=== PATIENT | male | born 1950 | race Caucasian/White ===

== ENCOUNTER 2018-12-28 08:33 | Observation (INO) | payer MEDICARE ==
--- NOTE | 2018-12-28 09:19 | RAD ---
CHEST 1 VIEW: HISTORY: Chest pain, dizziness. COMPARISON: Radiograph 2016. FINDINGS: Heart size upper limits of normal. No confluent airspace consolidation, pneumothorax, or effusion. No acute osseous abnormality. Multiple midline sternotomy wires. Moderate degenerative changes of both shoulder joints. IMPRESSION: Mild cardiomegaly. POS: CET
[2018-12-28 09:37] LABS: #Eosinphils 0.1 thou/uL (0.0-0.7); #Lymphocytes 1.6 thou/uL (1.20-3.40); #Monocytes 0.4 thou/uL (0.11-0.59); #Neutrophils 3.7 thou/uL (1.40-6.50); %Basophils 0.4 % (0.0-1.0); %Eosinophils 1.6 % (0.0-10.0); %Lymphocytes 27.3 % (21.0-51.0); %Monocytes 6.6 % (0.0-10.0); %Neutrophils 64.1 % (42.0-75.0); Hemoglobin 15.3 g/dL (14.0-18.0); Mean Corpuscular HGB CONC 33.4 g/dL (32.0-36.0); Mean Platelet Volume 9.5 fL (7.4-10.4); Platelet Count 168 thou/uL (130-400); RBC Distribution Width 12.3 % (11.5-14.5); Red Blood Cell (RBC) Count 4.94 mill/uL (4.70-6.10); White Blood Cell (WBC) Count 5.8 thou/uL (4.8-10.8)
[2018-12-28 09:56] LABS: ALT (SGPT) 18 U/L (8-55); AST (SGOT) 21 U/L (5-34); Albumin 4.1 g/dL (3.4-4.8); Alkaline Phosphatase 75 U/L (40-150); Anion Gap 12 mmol/L (10-20); BUN (Urea Nitrogen) 27 mg/dL (8.4-25.7); Bilirubin, Total 0.8 mg/dL (0.2-1.2); CK (CPK) 113 U/L (30-200); Calc. Creatinine Clearance 0 mL/min (70-130); Calcium 9.4 mg/dL (7.8-10.44); Carbon Dioxide 22 mmol/L (23-31); Chloride 108 mmol/L (98-107); Estimated GFR-MDRD 53; Globulin 2.8 g/dL (2.4-3.5); Glucose 103 mg/dL (80-115); Magnesium 2.2 mg/dL (1.6-2.6); Potassium 4.5 mmol/L (3.5-5.1); Protein, Total 6.9 g/dL (5.8-8.1); Sodium 137 mmol/L (136-145)
[2018-12-28] MEDS ORDERED: Meclizine HCl 25 MG TAB ONE ×2 (11:40)
--- NOTE | 2018-12-28 12:20 | CT ---
CT OF THE BRAIN WITHOUT CONTRAST: Date: 12/28/18 INDICATION: History of dizziness. COMPARISON: None. FINDINGS: No acute infarct, hemorrhage, or hydrocephalus is present. Septum pellucidum and third ventricle are midline. The skull and extracranial soft tissues are within normal limits. IMPRESSION: No acute intracranial abnormality demonstrated. POS: MARYJANE
[2018-12-28] MEDS ORDERED: Acetaminophen 325 MG TAB PO PRN (14:24)
--- NOTE | 2018-12-28 15:03 | PDOC.EVN ---
Event Note - Event Note Event Note: Called Dr. Sharp office and reviewed meds. He is on: Amlodipine/HCTZ Allopurinol ASA Flomax. He is not any chronotropes. He does have a history of afib/flutter and opts not to take anticoagulation. His HR has been in the 50's at their office in the past.
[2018-12-28 15:41] LABS: Troponin I Less than 0.010 ng/mL (< 0.028)
--- NOTE | 2018-12-28 16:03 | HP ---
CHIEF COMPLAINT: "Not feeling right." HISTORY OF PRESENT ILLNESS: This patient is a 68-year-old male with a past medical history notable for history of aortic valve stenosis with a bioprosthetic aortic valve replacement in February of 2015 with open heart procedure. At that time, the patient also had a left atrial appendage "resection." He also has a history of a saddle embolus following treatment for kidney stone. The patient reports that 2 days ago, when he was out setting fence posts, did not feel like he was working overly hard. Yesterday, he stated he felt well, but sometime after mu-ism, he started to feel like he had a "split image," however, he clarifies that he was not having double vision. He says clearly his head was not spinning and does not feel like the room was spinning, but he does say that he feels like "the 2 sides of his brain are not working together." He feels like he is cognitively intact and does not specifically feel off balance, but feels like this could be making his balance worse. He feels clearly that there is something wrong with the way his brain is perceiving the world. He also has a little bit of soreness in the neck, but no other headache or head pain. He has no associated fevers or chills. REVIEW OF SYSTEMS: All systems reviewed and all pertinent positives and negatives noted in the history of present illness. PAST MEDICAL HISTORY: Notable for hypertension, gout, saddle pulmonary embolus following renal stone lithotripsy. He does have the history of kidney stones; aortic valve stenosis; BPH; and chronic kidney disease, stage 3. The patient reports that he is unaware of ever having had atrial fibrillation or an ablation, although the record from his primary care doctor, Dr. Bay Busch from when the patient was admitted with a pulmonary embolus indicates that he did have AFib with ablation and left atrial appendage "resection." PAST SURGICAL HISTORY: Aortic valve replacement with a bioprosthetic valve in February of 2015, atrial fibrillation ablation. FAMILY HISTORY: Father had heart disease, but was a smoker. His mother at 89. SOCIAL HISTORY: Nonsmoker, nondrinker, nondrug user. He is . He is full code. His is his surrogate decision maker. ALLERGIES: PENICILLINS. CURRENT MEDICATIONS: The patient indicates he gave list, but is unaware of the specific names. Unable to track down his list at the moment. It appears as though he recalls taking aspirin 325 daily and allopurinol 100 mg. He also states that he was supposed to be taking a "heart medication" twice a day, but he is primarily taking it once a day. PHYSICAL EXAMINATION: VITAL SIGNS: Most recent vitals; blood pressure 147/105, although throughout his emergency room stay, his blood pressure has otherwise been completely normal; pulse 54, pulse did get down to 48 at one point; respirations 17; temperature is 97.9, and O2 saturations 96% on room air. GENERAL APPEARANCE: Age-appropriate male, in no distress. He is awake, alert, oriented, pleasant, and cooperative. HEENT: PERRL. No OP lesions. NECK: Supple and symmetric without lymphadenopathy, JVD, or carotid bruits. HEART: Regular rate and rhythm without murmurs, gallops, or rubs. LUNGS: Clear to auscultation bilaterally with good chest wall expansion and air exchange. ABDOMEN: Soft, nontender, and nondistended. Positive bowel sounds. No masses. No organomegaly. EXTREMITIES: Warm and dry with no cyanosis, clubbing, or edema. NEUROLOGICAL: The patient appears to be intact. He has normal cranial nerve function. Normal spontaneous movement, strength and sensation throughout. PSYCHIATRIC: The patient has normal affect and behavior. LABORATORY DATA: White count 5.8, hemoglobin 15.3, and platelets 168. Sodium 147, potassium 4.5, chloride 108, CO2 is 22, BUN is 27, creatinine is 1.34, glucose 103, and magnesium 2.2. AST 21, ALT is 18, and alkaline phosphatase 75. CK 113, troponin is less than 0.01. BNP 72. Albumin 4.1. IMAGING DATA: CT of the brain is negative. Chest x-ray is negative. EKG shows sinus bradycardia in the upper 50s with no ST-segment changes or evidence of ischemia. IMPRESSION AND PLAN: 1. Possible transient ischemic attack with balance disturbance. Difficult to define what he is describing as the patient has a very difficult time explaining it concerning for the possibility of balance disturbance, but also the possibility of symptomatic bradycardia. Also in the picture is the fact that he has a history of bioprosthetic aortic valve, pulmonary embolus, and atrial fibrillation. We will repeat a troponin now. We will get an MRI of the head, carotid Dopplers, and echocardiogram. We will keep him on telemetry. We will endeavor to find out what his medications. I am concerned he may be on a beta-jeny and may be having symptomatic bradycardia related to that. We will ask Physical Therapy to see him to get him up and around appropriately. 2. Chronic kidney disease, stage 3. The patient's current creatinine is consistent with where it has been since 2015. 3. Hypertension. We will resume his medications once they are fully elucidated. 4. History of pulmonary embolism. The patient was on anticoagulation for a period of time and is now off that per instructions of his primary physician. 5. History of BPH, stable. Job ID: [id number]
[2018-12-28 16:51] VITALS: BMI 30.9
--- NOTE | 2018-12-28 20:09 | MRI ---
NONCONTRAST MRI BRAIN: Date: 12-28-18 History: Vertigo. Patient has been off balance since one day ago. Comparison: CT head, 12-28-18. FINDINGS: A few scattered punctate areas of increased FLAIR and T2 weighted signal intensity are seen in the pe riventricular and subcortical white matter which are overall nonspecific but likely reflective of mil d chronic small vessel ischemic changes. There is no evidence of an acute infarction. Mild cerebral volume loss is present, not unexpected for the patient's age. The left vertebral flow void is dominant which is a normal variant. Appropriate flow voids are demons trated at the base of the brain. Patient's [place] lenses are not visualized. The paranasal sinuses and skull base have a normal MRI appearance. IMPRESSION: 1. No acute intracranial abnormality is demonstrated. 2. Mild chronic small vessel ischemic changes. POS: SONALI
--- NOTE | 2018-12-28 20:56 | ULT ---
BILATERAL CAROTID DUPLEX ULTRASOUND: History: TIA FINDINGS: Real-time color doppler evaluation of the right and left carotid systems show some minimal plaque for mation origin of both internal carotid arteries. On the right side peak systolic velocity of the common carotid are 65 cm/sec, internal carotid veloci ty 61 cm/sec, external carotid velocity 59 cm/sec. On the left side peak systolic velocity of the common carotid are 70 cm/sec, internal carotid velocit y 64 cm/sec, and external carotid velocity is 49 cm/sec. Vertebral flow is antegrade bilaterally. IMPRESSION: No evidence of hemodynamically significant stenosis of either internal carotid artery. POS: SONALI
[2018-12-29] MEDS ORDERED: Allopurinol 300 MG TAB PO SCH (09:00)
[2018-12-29] MEDS ORDERED: Amlodipine 5 MG TAB PO SCH (09:00)
[2018-12-29] MEDS ORDERED: Tamsulosin HCl 0.4 MG CAP PO SCH (09:00)
[2018-12-29] MEDS ORDERED: Aspirin 81 mg Enteric Coated Tablet PO SCH (09:00)
[2018-12-29 15:38] VITALS: BP 115/76; TEMP 98.2
--- NOTE | 2018-12-30 05:54 | DIS ---
DATE OF ADMISSION: 12/28/2018 DATE OF DISCHARGE: 12/29/2018 ALLERGIES: PENICILLINS. CHIEF COMPLAINTS: "Not feeling right." "The two sides of my brain are not working together." FINAL DIAGNOSES: 1. Possible transient ischemic attack versus transient vertigo, resolved, MRI is negative for cerebrovascular accident. 2. Severe aortic stenosis, status post bioprosthetic aortic valve and left atrial appendage ligation in 2014. 3. Sinus bradycardia. 4. Paroxysmal atrial fibrillation. 5. Hypertension. LAB RESULTS: White blood cell count 4.94, hemoglobin 15.3, hematocrit 45.9, MCV 93, platelet count 168. D-dimer 0.63. Sodium 137, potassium 4.5, chloride 108, carbon dioxide 22, BUN 27, creatinine 1.34. Liver function tests within normal limits. Troponin negative x2. BNP 72. Albumin 4.1. IMAGING RESULTS: Chest x-ray, mild cardiomegaly, no confluent airspace consolidation, pneumothorax, or effusions. No acute osseous abnormality. Multiple midline sternotomy wires. Brain CT, no acute intracranial abnormality demonstrated. Brain MRI, no acute intracranial abnormalities demonstrated, mild chronic small-vessel ischemic changes. Carotid Doppler, no evidence of hemodynamically significant stenosis of either internal carotid artery. CONSULTATIONS: None. VITAL SIGNS: Blood pressure 115/76, O2 saturation 95% on room air, pulse 61, temperature 98.2. HOSPITAL COURSE: The patient is a very pleasant 68-year-old male with past medical history significant for severe aortic stenosis, status post bioprosthetic aortic valve replacement and left atrial appendage ligation in 2014, history of paroxysmal atrial fibrillation, history of pulmonary embolism, and hypertension, who presented to the hospital via private vehicle with complaints of "not feeling right." The patient reports that approximately 2 days before his symptoms began, he had been out working on a fence post and doing quite a bit of heavy labor. The next day, he states he overall felt well, but sometime after faith, he started noticing that he did not feel quite right, and the way he describes it is that the right and left side of his brain were not talking to each other. He had no blurred vision, he had no dizziness per patient, although his states that he mentioned that once, he had no sensation of the room spinning. He never lost cognitive focus or had any focal neurologic deficits. He felt that there was something wrong with the way his brain was functioning and perceiving the world and so he drove himself to the hospital for further workup and treatment. As mentioned, his MRI of the brain and CT of the brain were both negative. Telemetry monitoring was unremarkable, and revealed sinus bradycardia in the 50s to 60s, which is a known finding for this patient. His symptoms spontaneously resolved after admission. Here, his workup has been negative, and physical therapy has evaluated him and cleared him, he has no weakness or motor deficits at this time. PHYSICAL EXAMINATION: GENERAL: This is a well-appearing, middle-aged male, in no acute distress, sitting up in chair, resting comfortably. HEENT: Atraumatic, normocephalic. Eye movement intact. NECK: Supple, no JVD, no carotid bruits, no lymphadenopathy. RESPIRATORY: Regular respiratory rate and pattern. Clear to auscultation bilaterally. No rhonchi, wheezes, or crackles noted. GI: Soft, nontender, normal bowel sounds. EXTREMITIES: No lower extremity edema. +2 DP pulses bilaterally. MUSCULOSKELETAL: No joint effusion or swelling. NEUROLOGIC: Cranial nerves II through XII intact. There is no focal deficit. SKIN: Warm and dry. No rashes. CONDITION AT DISCHARGE: Stable. DISCHARGE MEDICATIONS: 1. Allopurinol 300 mg 1 tablet p.o. daily. 2. Amlodipine and benazepril 5/20 mg capsule one capsule p.o. b.i.d. 3. Finasteride 5 mg 1 tablet p.o. daily. 4. Aspirin 325 mg daily. DISCHARGE DISPOSITION: Home. PLAN: The patient will be discharged home and will follow up within the next week with his primary care physician, Dr. Villa. Neurology consult was entertained; however, the patient's symptoms have completely resolved and brain MRI is negative. May discuss outpatient neurology consult with his primary care physician. The findings of his testing were discussed at length with the patient, and acute CVA was ruled out, although it is possible that the patient could have had a TIA. This was discussed with the patient at length. At this time, the patient is comfortable with discharge home and close followup with his primary care physician and his stock holder, Dr. Sharp, he will continue his home medications. Job ID: [id number]
== END 2018-12-29 16:50 | disposition home or self-care (01) ==
LOC: ERS 08:33 → ERHOLD 12:51 → 2SE 16:08
PROVIDERS: ADMIT Internal Medicine; ATTEND Internal Medicine
DX: R42 Dizziness and giddiness (principal); I35.0 Nonrheumatic aortic (valve) stenosis; M10.9 Gout, unspecified; I12.9 Hypertensive chronic kidney disease with stage 1 through stage 4 chronic kidney disease, or unspecified chronic kidney disease; N18.3 Chronic kidney disease, stage 3 (moderate); N40.0 Benign prostatic hyperplasia without lower urinary tract symptoms; I48.0 Paroxysmal atrial fibrillation; Z86.711 Personal history of pulmonary embolism; Z79.82 Long term (current) use of aspirin; Z79.899 Other long term (current) drug therapy; Z88.0 Allergy status to penicillin; Z95.2 Presence of prosthetic heart valve; Z98.890 Other specified postprocedural states
CPT/HCPCS: 70450; 70551; 71045; 80053; 82550; 83735; 83880; 84484 ×2; 85025; 85379; 93005; 93306; 93880; 94760; 96360; 96361; 97139; 99285; G0378 ×2; 36415

== ENCOUNTER 2019-06-23 16:40 | Emergency (ER) | payer MEDICARE ==
--- NOTE | 2019-06-23 17:05 | RAD ---
Left finger 3 views HISTORY: Left finger injury. FINDINGS: It is not clear which finger has been imaged. Mildly comminuted oblique fracture involves t he distal tuft with 0.3 cm distraction. No intra-articular extension. Moderate osteoarthritic changes. IMPRESSION: Distal phalanx fracture. Osteoarthritis.
[2019-06-23] MEDS ORDERED: Adacel (T-DAP) 0.5 ML SYRINGE ONE (17:21)
[2019-06-23] MEDS ORDERED: Acetaminophen/Codeine 30-300mg Tablet ONE (17:22)
== END 2019-06-23 18:45 | disposition home or self-care (01) ==
LOC: ERS 16:40
DX: S62.631A Displaced fracture of distal phalanx of left index finger, initial encounter for closed fracture (principal); I10 Essential (primary) hypertension; I48.91 Unspecified atrial fibrillation; Z79.82 Long term (current) use of aspirin; Z79.899 Other long term (current) drug therapy; W23.0XXA Caught, crushed, jammed, or pinched between moving objects, initial encounter
CPT/HCPCS: 26750; 90471; 90715

== ENCOUNTER 2020-07-11 09:50 | Outpatient (CLI) | payer MEDICARE ==
--- NOTE | 2020-07-11 12:23 | CT ---
CT NECK SOFT TISSUES WITH CONTRAST: Date: 07/11/2020 HISTORY: 69-year-old male with ICD-10: R22.0 parotid mass. FINDINGS: Near the location of the externally placed marker, there is an approximately 1.4 x 1.7 x 1.2 cm mass at the tail of the superficial lobe of the left parotid gland. It has low attenuation, with density o f 9 HU, suggesting fluid content. There is no cervical lymphadenopathy. The rest of the left parotid gland and the right parotid gland demonstrate no other masses. No discrete mass is identified in the bilateral submandibular glands. There is atherosclerotic calcification without high grade stenosis at the bilateral carotid bulbs and proximal internal carotid arteries. No other significant abnormality is identified involving the carotid, parapharyngeal, perivertebral, retropharyngeal, journeyman tool and die maker, or posterior cervical spaces. Trachea is patent and clear. No laryngeal pathology identified. Heavily calcified mediastinal lymph nodes are visualized on the right side consistent with old granul omatous disease. There are sternotomy wires. IMPRESSION: A low attenuation 1.7 cm mass at the tail of the left parotid gland. Possibilities include necrotic i ntraparotid lymph node versus cystic neoplasm. Either surgical excision or biopsy is recommended. CODE T. POS: JIN
== END 2020-07-11 09:51 | disposition home or self-care (01) ==
LOC: SCSCT 09:50
PROVIDERS: ATTEND Student in an Organized Health Care Education/Training Program
DX: R22.1 Localized swelling, mass and lump, neck (principal)
CPT/HCPCS: 70491; 82565

== ENCOUNTER 2021-04-10 09:53 | Emergency (ER) | payer MEDICARE, SELFPAY ==
[2021-04-10 10:20] LABS: #Eosinphils 0.1 thou/uL (0.0-0.7); #Lymphocytes 1.2 thou/uL (1.20-3.40); #Monocytes 0.9 thou/uL (0.11-0.59); #Neutrophils 8.6 thou/uL (1.40-6.50); %Basophils 0.3 % (0.0-1.0); %Eosinophils 0.8 % (0.0-10.0); %Lymphocytes 10.9 % (21.0-51.0); %Monocytes 8.2 % (0.0-10.0); %Neutrophils 79.7 % (42.0-75.0); Hemoglobin 14.5 g/dL (14.0-18.0); Mean Corpuscular HGB CONC 32.6 g/dL (32.0-36.0); Mean Corpuscular Hemoglobin 30.7 pg (27.0-31.0); Mean Platelet Volume 8.7 fL (7.4-10.4); Platelet Count 177 thou/uL (130-400); RBC Distribution Width 12.2 % (11.5-14.5); Red Blood Cell (RBC) Count 4.73 mill/uL (4.70-6.10); White Blood Cell (WBC) Count 10.8 thou/uL (4.8-10.8)
[2021-04-10 10:40] LABS: ALT (SGPT) 17 U/L (8-55); AST (SGOT) 19 U/L (5-34); Alkaline Phosphatase 96 U/L (40-110); Anion Gap 12 mmol/L (10-20); BUN (Urea Nitrogen) 22 mg/dL (8.4-25.7); Calc. Creatinine Clearance 0 mL/min (70-130); Calcium 9.2 mg/dL (7.8-10.44); Carbon Dioxide 22 mmol/L (23-31); Chloride 105 mmol/L (98-107); Globulin 3.1 g/dL (2.4-3.5); Glucose 111 mg/dL (80-115); Potassium 4.4 mmol/L (3.5-5.1); Protein, Total 7.1 g/dL (5.8-8.1); Sodium 135 mmol/L (136-145)
[2021-04-10] MEDS ORDERED: Dexamethasone 10 MG/ML VIAL ONE (13:17)
[2021-04-10] MEDS ORDERED: Ketorolac Tromethamine 30 MG/ML VIAL ONE (13:17)
== END 2021-04-10 14:27 | disposition home or self-care (01) ==
LOC: ERS 09:53
DX: J40 Bronchitis, not specified as acute or chronic (principal); I10 Essential (primary) hypertension; I48.91 Unspecified atrial fibrillation; R07.89 Other chest pain; Z79.82 Long term (current) use of aspirin; Z79.899 Other long term (current) drug therapy
CPT/HCPCS: 36415; 71046; 80053; 83880; 84484; 85025; 93005; 94760; 96372; J1100; J1885

== ENCOUNTER 2021-09-06 10:17 | Outpatient (CLI) | payer SELFPAY ==
[2021-05-10 08:20] LABS: Hemoglobin 14.2 g/dL (13.5-17.5); Mean Corpuscular Hemoglobin 30.5 pg (27.0-33.0); Mean Corpuscular Volume 92.3 fl (81.2-95.1); Mean Platelet Volume 11.4 fl (7.4-10.4); Platelet Count 169 10x3/uL (150-450); RBC Distribution Width 13.2 % (11.5-14.5); Red Blood Cell (RBC) Count 4.66 10x6/uL (4.32-5.72); White Blood Cell (WBC) Count 9.2 10x3/uL (3.5-10.5)
[2021-05-10 08:36] LABS: Anion Gap 15 mmol/L (10-20); BUN (Urea Nitrogen) 16 mg/dL (8.4-25.7); Calc. Creatinine Clearance 0 mL/min (70-130); Calcium 9.7 mg/dL (7.8-10.44); Carbon Dioxide 23 mmol/L (23-31); Chloride 105 mmol/L (98-107); Glucose 92 mg/dL (80-115); Potassium 4.8 mmol/L (3.5-5.1); Sodium 138 mmol/L (136-145)
[2021-05-10 08:48] LABS: PTT 28.4 sec (22.0-33.0); Prothrombin Time 11.4 sec (9.5-12.1)
[2021-05-10 09:30] LABS: Platelet Count 168 thou/uL (130-400)
[2021-05-10 09:39] LABS: EPI 116 SEC (67-199)
[2021-09-06 12:04] LABS: Prothrombin Time 10.9 sec (9.5-12.1)
[2021-09-06 12:06] LABS: Anion Gap 12 mmol/L (10-20); BUN (Urea Nitrogen) 17 mg/dL (8.4-25.7); Calc. Creatinine Clearance 0 mL/min (70-130); Calcium 9.1 mg/dL (7.8-10.44); Carbon Dioxide 23 mmol/L (23-31); Chloride 110 mmol/L (98-107); Glucose 90 mg/dL (83-110); Hemoglobin 14.3 g/dL (13.5-17.5); Mean Corpuscular HGB CONC 33.3 g/dL (32.0-36.0); Mean Corpuscular Hemoglobin 30.8 pg (27.0-33.0); Mean Corpuscular Volume 92.5 fl (81.2-95.1); Mean Platelet Volume 12.3 fl (7.4-10.4); Platelet Count 192 10x3/uL (150-450); Potassium 4.7 mmol/L (3.5-5.1); RBC Distribution Width 14.3 % (11.5-14.5); Red Blood Cell (RBC) Count 4.64 10x6/uL (4.32-5.72); Sodium 140 mmol/L (136-145); White Blood Cell (WBC) Count 5.7 10x3/uL (3.5-10.5)
[2021-09-06 12:31] LABS: Platelet Count 174 thou/uL (130-400)
[2021-09-06 13:30] LABS: EPI 138 SEC (67-199)
[2021-09-06 17:27] LABS: SARS-CoV-2 PCR by NAA Not Detected (NotDetected)
== END 2021-09-06 10:18 | disposition home or self-care (01) ==
LOC: LABBT 10:17
PROVIDERS: ATTEND Urology
DX: Z01.818 Encounter for other preprocedural examination (principal); N20.0 Calculus of kidney; Z20.822 Contact with and (suspected) exposure to COVID-19
CPT/HCPCS: 80048; 85027; 85576; 85610; 85730; 93005; 93010; U0003; U0005

== ENCOUNTER 2021-09-10 05:55 | Observation (INO) | payer MEDICARE ==
[2021-09-10] MEDS ORDERED: Iothalamate Meglumine 60% 50 ML VIAL FS ONE (06:31)
[2021-09-10] MEDS ORDERED: Fentanyl 100 MCG/2 ML VIAL ONE ×2 (06:40→10:07)
[2021-09-10] MEDS ORDERED: Levofloxacin 500 mg/D5W 100 ml Premix Bag ONE (07:24)
[2021-09-10] MEDS ORDERED: ePHEDrine 50 MG/ML VIAL ONE (07:41)
[2021-09-10] MEDS ORDERED: Ondansetron PF 4 MG/2 ML Vial ONE (07:41)
[2021-09-10] MEDS ORDERED: Dexamethasone 20 MG/5 ML VIAL ONE (07:41)
[2021-09-10] MEDS ORDERED: Lidocaine 1% PF 5 ML VIAL ONE (07:41)
[2021-09-10] MEDS ORDERED: PROPOFOL 200 MG/20 ML VIAL ONE (07:41)
[2021-09-10] MEDS ORDERED: HYDROcodone/Acetaminophen 5/325 mg Tablet ONE ×3 (10:23→14:56)
[2021-09-10] MEDS ORDERED: Morphine 4 MG/ML VIAL ONE (14:09)
[2021-09-10] MEDS ORDERED: Promethazine HCl 25 MG/ML VIAL ONE (14:28)
[2021-09-10] MEDS ORDERED: Ondansetron ODT 4 MG TAB ONE (14:56)
[2021-09-10] MEDS ORDERED: Naloxone HCl 0.4 mg/ml Vial IV PRN (16:54)
[2021-09-10] MEDS ORDERED: diphenhydrAMINE 50 MG/ML VIAL IVP PRN (16:54)
[2021-09-10] MEDS ORDERED: Zolpidem Tartrate 5 MG TAB PO PRN (16:54)
[2021-09-10] MEDS ORDERED: HYDROmorphone 10 mg/100 ml CADD IVPB PRN (16:54)
[2021-09-10] MEDS ORDERED: Promethazine HCl 25 MG/ML VIAL IM PRN (16:54)
[2021-09-10] MEDS ORDERED: diphenhydrAMINE 50 MG/ML VIAL IM PRN (16:54)
[2021-09-10] MEDS ORDERED: Ondansetron PF 4 MG/2 ML Vial IVP PRN (16:54)
[2021-09-10] MEDS ORDERED: diphenhydrAMINE 25 MG CAP PO PRN (16:54)
[2021-09-10] MEDS ORDERED: Communication Order-Pharmacy FS SCH (17:00)
[2021-09-10] MEDS ORDERED: D5 1/2 NS w/20 mEq KCL 1,000 ML IV SCH (18:15)
[2021-09-10 18:18] LABS: Hemoglobin 13.2 g/dL (14.0-18.0)
[2021-09-10 20:08] VITALS: BMI 33.0
[2021-09-10] MEDS ORDERED: Tamsulosin HCl 0.4 MG CAP PO SCH (21:15)
[2021-09-11] MEDS: Dextrose 5 %-0.45 % NaCl 1,000 ML IV SCH ×3 (03:02→15:38)
[2021-09-11 06:10] LABS: #Lymphocytes 1.1 thou/uL (1.20-3.40); #Neutrophils 12.3 thou/uL (1.40-6.50); %Basophils 0.1 % (0.0-1.0); %Lymphocytes 7.4 % (21.0-51.0); %Monocytes 7.2 % (0.0-10.0); %Neutrophils 85.3 % (42.0-75.0); Hemoglobin 11.3 g/dL (14.0-18.0); Mean Corpuscular Hemoglobin 32.3 pg (27.0-31.0); Mean Corpuscular Volume 95.1 fL (78.0-98.0); Mean Platelet Volume 9.1 fL (7.4-10.4); Platelet Count 164 thou/uL (130-400); RBC Distribution Width 13.6 % (11.5-14.5); Red Blood Cell (RBC) Count 3.49 mill/uL (4.70-6.10); White Blood Cell (WBC) Count 14.5 thou/uL (4.8-10.8)
[2021-09-11 06:32] LABS: Anion Gap 10 mmol/L (10-20); BUN (Urea Nitrogen) 26 mg/dL (8.4-25.7); Calc. Creatinine Clearance 57 mL/min (70-130); Calcium 8.4 mg/dL (7.8-10.44); Carbon Dioxide 24 mmol/L (23-31); Chloride 102 mmol/L (98-107); Glucose 125 mg/dL (83-110); Potassium 4.8 mmol/L (3.5-5.1); Sodium 131 mmol/L (136-145)
[2021-09-11] MEDS ORDERED: Allopurinol 300 MG TAB PO SCH (09:00)
[2021-09-11] MEDS ORDERED: Cholecalciferol 1,000 UNITS (25 MCG) TAB PO SCH (09:00)
[2021-09-11] MEDS ORDERED: Amlodipine 5 mg/Benazepril 20 mg CAP PO SCH (09:00)
[2021-09-11] MEDS ORDERED: traMADol HCl 50 MG TAB PO PRN ×4 (10:12→13:44)
[2021-09-11] MEDS ORDERED: Acetaminophen 500 MG TAB PO SCH (12:00)
[2021-09-11 13:01] LABS: Hemoglobin 11.4 g/dL (14.0-18.0)
[2021-09-11 16:15] VITALS: BP 103/64
[2021-09-11 16:19] VITALS: TEMP 97.9
[2021-09-11] MEDS ORDERED: Finasteride 5 MG TAB PO SCH (21:00)
== END 2021-09-11 16:20 | disposition home or self-care (01) ==
LOC: SDC 05:55 → SURG A 16:30
PROVIDERS: ADMIT Urology; ATTEND Urology
PROC: 0TF3XZZ Fragmentation in Right Kidney Pelvis, External Approach (ICD-10-PCS; principal; 2021-09-10)
PROC: 0TCB8ZZ Extirpation of Matter from Bladder, Via Natural or Artificial Opening Endoscopic (ICD-10-PCS; 2021-09-10)
DX: N20.0 Calculus of kidney (principal); N21.0 Calculus in bladder; G47.33 Obstructive sleep apnea (adult) (pediatric); I10 Essential (primary) hypertension; M17.0 Bilateral primary osteoarthritis of knee; M10.9 Gout, unspecified; K80.20 Calculus of gallbladder without cholecystitis without obstruction; J90 Pleural effusion, not elsewhere classified; Z79.01 Long term (current) use of anticoagulants; Z79.82 Long term (current) use of aspirin; Z79.899 Other long term (current) drug therapy; Z88.0 Allergy status to penicillin; Z95.2 Presence of prosthetic heart valve
CPT/HCPCS: 50590; 52317; 74018; 74176; 80048; 82365; 85018 ×2; 85025; Q9961; 36415; 88300; 96374; G0378; J1100; J1956; J2270; J2405; J2550; J2704; J3010; J3480; J3490; J7042; Q0162

== ENCOUNTER 2022-05-03 09:23 | Outpatient (CLI) | payer MEDICARE ==
[2022-05-03 11:12] LABS: Hemoglobin 12.5 g/dL (13.5-17.5); Mean Corpuscular HGB CONC 33.9 g/dL (32.0-36.0); Mean Corpuscular Hemoglobin 31.3 pg (27.0-33.0); Mean Corpuscular Volume 92.5 fl (81.2-95.1); Mean Platelet Volume 12.3 fl (7.4-10.4); Platelet Count 180 10x3/uL (150-450); RBC Distribution Width 13.7 % (11.5-14.5); Red Blood Cell (RBC) Count 3.99 10x6/uL (4.32-5.72); White Blood Cell (WBC) Count 5.7 10x3/uL (3.5-10.5)
[2022-05-03 11:31] LABS: Anion Gap 14 mmol/L (10-20); BUN (Urea Nitrogen) 24 mg/dL (8.4-25.7); Calc. Creatinine Clearance 0 mL/min (70-130); Calcium 8.9 mg/dL (7.8-10.44); Carbon Dioxide 21 mmol/L (23-31); Chloride 108 mmol/L (98-107); Estimated GFR 43; Glucose 83 mg/dL (83-110); Potassium 4.3 mmol/L (3.5-5.1); Sodium 139 mmol/L (136-145)
== END 2022-05-03 09:24 | disposition home or self-care (01) ==
LOC: LABBT 09:23
PROVIDERS: ATTEND Urology
DX: Z01.818 Encounter for other preprocedural examination (principal); Z20.822 Contact with and (suspected) exposure to COVID-19
CPT/HCPCS: 80048; 85027; 87086; 87811; 93005; 93010

== ENCOUNTER 2022-05-07 11:24 | Day surgery (SDC) | payer MEDICARE ==
[2022-05-03 13:50] VITALS: BMI 31.4
[2022-05-07] MEDS ORDERED: Levofloxacin 500 mg/D5W 100 ml Premix Bag ONE (12:08)
[2022-05-07] MEDS ORDERED: Fentanyl 100 MCG/2 ML VIAL ONE (13:04)
[2022-05-07] MEDS ORDERED: SUGAMMADEX SODIUM 200 MG/2 ML VIAL ONE (13:04)
[2022-05-07] MEDS ORDERED: Vancomycin 1 GM/200 ML BAG ONE (13:05)
[2022-05-07 13:12] LABS: Prothrombin Time 13.8 sec (12.0-14.7)
[2022-05-07 13:13] LABS: PTT 34.6 sec (22.9-36.1)
[2022-05-07] MEDS ORDERED: Ondansetron PF 4 MG/2 ML Vial ONE (13:13)
[2022-05-07] MEDS ORDERED: Rocuronium Bromide 10 MG/ML (10ML VIAL) ONE (13:13)
[2022-05-07] MEDS ORDERED: PROPOFOL 200 MG/20 ML VIAL ONE (13:13)
[2022-05-07] MEDS ORDERED: Glycopyrrolate 0.2 MG/ML 5 ML SYRINGE ONE (13:13)
[2022-05-07] MEDS ORDERED: Dexamethasone 20 MG/5 ML VIAL ONE (13:13)
[2022-05-07] MEDS ORDERED: Phenylephrine 10 MG/ML VIAL ONE (13:13)
[2022-05-07] MEDS ORDERED: Lidocaine 1% PF 5 ML VIAL ONE (13:13)
== END 2022-05-07 16:22 | disposition home or self-care (01) ==
LOC: SDC 11:24
PROVIDERS: ATTEND Urology
PROC: 0TBB8ZX Excision of Bladder, Via Natural or Artificial Opening Endoscopic, Diagnostic (ICD-10-PCS; principal; 2022-05-07)
PROC: 0TC68ZZ Extirpation of Matter from Right Ureter, Via Natural or Artificial Opening Endoscopic (ICD-10-PCS; 2022-05-07)
PROC: 0T768DZ Dilation of Right Ureter with Intraluminal Device, Via Natural or Artificial Opening Endoscopic (ICD-10-PCS; 2022-05-07)
DX: N13.2 Hydronephrosis with renal and ureteral calculous obstruction (principal); N32.89 Other specified disorders of bladder; N40.0 Benign prostatic hyperplasia without lower urinary tract symptoms; I10 Essential (primary) hypertension; G47.33 Obstructive sleep apnea (adult) (pediatric); Z79.01 Long term (current) use of anticoagulants; Z79.82 Long term (current) use of aspirin; Z79.899 Other long term (current) drug therapy; Z88.0 Allergy status to penicillin; Z88.7 Allergy status to serum and vaccine
CPT/HCPCS: 52204; 52356; 74420; 82365; 85610; 85730; C2617; 88300; 88305; J1100; J1956; J2370; J2405; J2704; J2710; J3010; J3370

== ENCOUNTER 2023-01-12 19:30 | Outpatient (CLI) | payer MEDICARE | END 2023-01-12 19:31 | disposition home or self-care (01) | LOC: SLEEPLAB 19:30 | PROVIDERS: ATTEND Internal Medicine | DX: G47.33 Obstructive sleep apnea (adult) (pediatric) (principal); R06.83 Snoring; I10 Essential (primary) hypertension; G47.10 Hypersomnia, unspecified; G47.00 Insomnia, unspecified | CPT/HCPCS: 95811 ==

== ENCOUNTER 2023-12-26 08:32 | Outpatient (CLI) | payer MEDICARE ==
[2023-12-26] MEDS ORDERED: Magnevist 469MG/ML 20 ML VIAL ONE (13:18)
== END 2023-12-26 08:33 | disposition home or self-care (01) ==
LOC: MRI 08:32
PROVIDERS: ATTEND Physician Assistant Medical
DX: K86.2 Cyst of pancreas (principal); N28.1 Cyst of kidney, acquired
CPT/HCPCS: 74183; 82565; A9579

== ENCOUNTER 2024-03-01 19:08 | Emergency (ER) | payer MEDICARE ==
[2024-03-01 20:13] LABS: #Basophils 0.03 10x3/uL (0.0-0.2); %Basophils 0.4 % (0.0-1.0); %Eosinophils 0.7 % (0.0-10.0); %Lymphocytes 22.1 % (21.0-51.0); %Monocytes 6.2 % (0.0-10.0); %Neutrophils 70.5 % (42.0-75.0); Hematocrit 42.4 % (42.0-52.0); Hemoglobin 14.5 g/dL (14.0-18.0); Mean Corpuscular HGB CONC 34.2 g/dL (32.0-36.0); Mean Corpuscular Hemoglobin 32.7 pg (27.0-31.0); Mean Corpuscular Volume 95.5 fL (78.0-98.0); Mean Platelet Volume 11.3 fL (7.4-10.4); Platelet Count 154 10x3/uL (130-400); RBC Distribution Width 13.1 % (11.5-14.5); Red Blood Cell (RBC) Count 4.44 mill/uL (4.70-6.10)
[2024-03-01 20:30] LABS: ALT (SGPT) 16 U/L (8-55); AST (SGOT) 25 U/L (5-34); Albumin 3.9 g/dL (3.4-4.8); Alkaline Phosphatase 71 U/L (40-110); Anion Gap 15 mmol/L (10-20); BUN (Urea Nitrogen) 22 mg/dL (8.4-25.7); Bilirubin, Total 0.8 mg/dL (0.2-1.2); Calc. Creatinine Clearance 0 mL/min (70-130); Calcium 9.2 mg/dL (7.8-10.44); Carbon Dioxide 20 mmol/L (23-31); Chloride 108 mmol/L (98-107); Estimated GFR 50; Globulin 2.9 g/dL (2.4-3.5); Glucose 100 mg/dL (83-110); Potassium 3.8 mmol/L (3.5-5.1); Protein, Total 6.8 g/dL (5.8-8.1); Sodium 139 mmol/L (136-145)
[2024-03-01] MEDS ORDERED: levETIRAcetam 500 MG TAB ONE (20:59)
== END 2024-03-01 21:14 | disposition home or self-care (01) ==
LOC: ERS 19:08
DX: R56.9 Unspecified convulsions (principal); I10 Essential (primary) hypertension; I48.91 Unspecified atrial fibrillation
CPT/HCPCS: 36415; 70450; 80053; 84146; 85025

== ENCOUNTER 2025-08-02 10:41 | Emergency (ER) | payer MEDICARE ==
[2025-08-02 11:12] LABS: #Basophils 0.04 10x3/uL (0.0-0.2); #Eosinophils 0.07 10x3/uL (0.0-0.7); #Monocytes 0.77 10x3/uL (0.11-0.59); #Neutrophils 6.73 10x3/uL (1.40-6.50); %Basophils 0.4 % (0.0-1.0); %Eosinophils 0.7 % (0.0-10.0); %Lymphocytes 22.9 % (21.0-51.0); %Monocytes 7.8 % (0.0-10.0); %Neutrophils 67.9 % (42.0-75.0); Hematocrit 32.7 % (42.0-52.0); Hemoglobin 10.0 g/dL (14.0-18.0); Mean Corpuscular Hemoglobin 29.5 pg (27.0-31.0); Mean Corpuscular Volume 96.5 fL (78.0-98.0); Platelet Count 223 10x3/uL (130-400); Red Blood Cell (RBC) Count 3.39 mill/uL (4.70-6.10); White Blood Cell (WBC) Count 9.91 10x3/uL (4.8-10.8)
[2025-08-02 11:32] LABS: ALT (SGPT) 16 U/L (Less than 45); AST (SGOT) 27 U/L (11-34); Albumin 3.3 g/dL (3.1-4.5); Alkaline Phosphatase 104 U/L (40-110); Anion Gap 20 mmol/L (10-20); BUN (Urea Nitrogen) 33 mg/dL (8.4-25.7); Bilirubin, Total 0.6 mg/dL (0.3-1.2); Calc. Creatinine Clearance 0 mL/min (70-130); Calcium 9.1 mg/dL (7.8-10.44); Carbon Dioxide 24 mmol/L (23-31); Chloride 100 mmol/L (98-107); Globulin 3.4 g/dL (2.4-3.5); Glucose 123 mg/dL (83-110); Potassium 4.0 mmol/L (3.5-5.1); Sodium 140 mmol/L (136-145)
[2025-08-02 11:40] LABS: Bacteria/HPF None Seen HPF (None Seen); CAUTI Indications for Culture Alt mental st,lethar; Glucose, Urine (Dipstick) Normal (Negative); Leukocyte 25 Leu/uL (Negative); Protein, Urine (Dipstick) 10 mg/dL (Neg-Trace); RBC/HPF None Seen HPF (0-3); Specific Gravity, Urine 1.015 (1.002-1.036)
[2025-08-02 11:42] LABS: Urine Culture Reflex No No
[2025-08-02 12:12] LABS: Actual Bicarbonate (HCO3v) 22.7 mEq/L (22-28); Base Excess -1.1 mEq/L (-2.0 to +3.0); Calcium, Ionized (venous) 1.06 mmol/L (1.16-1.32); Chloride (VBG) 101 mmol/L (98-106); Hematocrit-VBG 32 % (42.0-52.0); Hemoglobin (Hb) 11.0 g/dL (12.6-17.4); Potassium (VBG) 4.02 mmol/L (3.70-5.30); Sodium 137 mmol/L (133-146)
[2025-08-02] MEDS ORDERED: cefTRIAXone (ROCEPHIN) 2 GM VIAL ONE (14:32)
== END 2025-08-02 17:53 | disposition short-term general hospital (02) ==
LOC: ERS 10:41
DX: I95.9 Hypotension, unspecified (principal); R55 Syncope and collapse; Z95.2 Presence of prosthetic heart valve; I10 Essential (primary) hypertension; Z79.82 Long term (current) use of aspirin; Z79.899 Other long term (current) drug therapy; I38 Endocarditis, valve unspecified
CPT/HCPCS: 71045; 80053; 81001; 82805; 83605; 84484; 85025; 87040 ×2; 87086; 87149 ×2; 93005; 94760; 96361; 96365; 99285; J0696; 36415; 80048; 85027; 86140; 87077

== ENCOUNTER 2025-08-13 17:41 | Inpatient (IN) | payer MEDICARE ==
[2025-08-13] MEDS ORDERED: Ondansetron PF 4 MG/2 ML Vial ONE (18:01)
[2025-08-13 18:20] LABS: #Basophils 0.03 10x3/uL (0.0-0.2); #Eosinophils 0.05 10x3/uL (0.0-0.7); #Monocytes 0.33 10x3/uL (0.11-0.59); #Neutrophils 5.13 10x3/uL (1.40-6.50); %Basophils 0.5 % (0.0-1.0); %Eosinophils 0.8 % (0.0-10.0); %Lymphocytes 15.2 % (21.0-51.0); %Monocytes 5.0 % (0.0-10.0); %Neutrophils 78.2 % (42.0-75.0); Hematocrit 29.0 % (42.0-52.0); Hemoglobin 9.1 g/dL (14.0-18.0); Mean Corpuscular Hemoglobin 29.7 pg (27.0-31.0); Mean Corpuscular Volume 94.8 fL (78.0-98.0); Platelet Count 211 10x3/uL (130-400); Red Blood Cell (RBC) Count 3.06 mill/uL (4.70-6.10); White Blood Cell (WBC) Count 6.56 10x3/uL (4.8-10.8)
[2025-08-13] MEDS ORDERED: Metoclopramide HCl 10 MG (2 mL) VIAL ONE (18:30)
[2025-08-13 18:38] LABS: ALT (SGPT) 12 U/L (Less than 45); AST (SGOT) 24 U/L (11-34); Acetaminophen Less than 10 mcg/mL (Less than 10); Albumin 2.9 g/dL (3.1-4.5); Alkaline Phosphatase 91 U/L (40-110); Anion Gap 15 mmol/L (10-20); BUN (Urea Nitrogen) 17 mg/dL (8.4-25.7); Bilirubin, Total 0.3 mg/dL (0.3-1.2); Calc. Creatinine Clearance 0 mL/min (70-130); Calcium 8.6 mg/dL (7.8-10.44); Carbon Dioxide 20 mmol/L (23-31); Chloride 106 mmol/L (98-107); Globulin 2.9 g/dL (2.4-3.5); Glucose 106 mg/dL (83-110); Potassium 4.0 mmol/L (3.5-5.1); Salicylate Less than 8.0 mg/dL (Less than 8.0); Sodium 137 mmol/L (136-145)
[2025-08-13] MEDS ORDERED: levETIRAcetam 500 MG (5 mL) VIAL ONE (20:15)
[2025-08-13] MEDS ORDERED: Acetaminophen 325 MG TAB PO PRN (20:49)
[2025-08-13] MEDS: Famotidine 20 MG TAB PO SCH (23:05)
[2025-08-14 00:24] VITALS: BMI 31.6
[2025-08-14 02:09] LABS: Influenza A by NAA Not Detected (NotDetected); Influenza B by NAA Not Detected (NotDetected); SARS-CoV-2 NAA Rapid Test Not Detected (NotDetected)
[2025-08-14 04:40] LABS: #Basophils Less than 0.03 10x3/uL (0.0-0.2); #Eosinophils Less than 0.03 10x3/uL (0.0-0.7); #Monocytes 0.43 10x3/uL (0.11-0.59); #Neutrophils 4.76 10x3/uL (1.40-6.50); %Basophils 0.3 % (0.0-1.0); %Eosinophils 0.2 % (0.0-10.0); %Lymphocytes 16.0 % (21.0-51.0); %Monocytes 6.9 % (0.0-10.0); %Neutrophils 76.3 % (42.0-75.0); Hematocrit 26.5 % (42.0-52.0); Hemoglobin 8.3 g/dL (14.0-18.0); Mean Corpuscular Hemoglobin 29.9 pg (27.0-31.0); Mean Corpuscular Volume 95.3 fL (78.0-98.0); Platelet Count 210 10x3/uL (130-400); Red Blood Cell (RBC) Count 2.78 mill/uL (4.70-6.10); White Blood Cell (WBC) Count 6.24 10x3/uL (4.8-10.8)
[2025-08-14 04:49] LABS: Bacteria/HPF None Seen HPF (None Seen); CAUTI Indications for Culture Alt mental st,lethar; Glucose, Urine (Dipstick) Normal (Negative); Leukocyte Negative Leu/uL (Negative); Protein, Urine (Dipstick) 10 mg/dL (Neg-Trace); RBC/HPF Greater than 50 HPF (0-3); Specific Gravity, Urine 1.017 (1.002-1.036); WBC/HPF 21-50 HPF (0-3)
[2025-08-14 04:56] LABS: Urine Culture Reflex Yes Yes
[2025-08-14 04:59] LABS: Anion Gap 12 mmol/L (10-20); BUN (Urea Nitrogen) 16 mg/dL (8.4-25.7); Calc. Creatinine Clearance 82 mL/min (70-130); Calcium 8.6 mg/dL (7.8-10.44); Carbon Dioxide 22 mmol/L (23-31); Chloride 110 mmol/L (98-107); Glucose 96 mg/dL (83-110); Magnesium 1.9 mg/dL (1.6-2.6); Potassium 4.5 mmol/L (3.5-5.1); Sodium 139 mmol/L (136-145)
[2025-08-14] MEDS: cefTRIAXone\\ROCEPHIN 2 GM in Sodium Chloride 0.9% 100 ML IVPB SCH (06:06)
[2025-08-14] MEDS: levETIRAcetam 500 MG (5 mL) VIAL SLOW IVP SCH (10:28)
[2025-08-14] MEDS: Amiodarone 200 MG TAB PO SCH (11:16)
[2025-08-14] MEDS: Furosemide 20 MG TAB PO SCH (11:17)
[2025-08-14] MEDS: Metoprolol Succinate XL 25 MG ER.TAB PO SCH (11:17)
[2025-08-14 13:35] VITALS: BMI 31.6
[2025-08-14] MEDS: Mupirocin 1 GM TUBE TP SCH (20:53)
[2025-08-15 04:29] LABS: #Basophils 0.03 10x3/uL (0.0-0.2); #Eosinophils 0.11 10x3/uL (0.0-0.7); #Monocytes 0.45 10x3/uL (0.11-0.59); #Neutrophils 3.27 10x3/uL (1.40-6.50); %Basophils 0.6 % (0.0-1.0); %Eosinophils 2.1 % (0.0-10.0); %Lymphocytes 25.4 % (21.0-51.0); %Monocytes 8.7 % (0.0-10.0); %Neutrophils 62.8 % (42.0-75.0); Hematocrit 27.6 % (42.0-52.0); Hemoglobin 8.3 g/dL (14.0-18.0); Mean Corpuscular Hemoglobin 29.1 pg (27.0-31.0); Mean Corpuscular Volume 96.8 fL (78.0-98.0); Platelet Count 199 10x3/uL (130-400); Red Blood Cell (RBC) Count 2.85 mill/uL (4.70-6.10); White Blood Cell (WBC) Count 5.20 10x3/uL (4.8-10.8)
[2025-08-15 04:42] LABS: Anion Gap 12 mmol/L (10-20); BUN (Urea Nitrogen) 15 mg/dL (8.4-25.7); Calc. Creatinine Clearance 75 mL/min (70-130); Calcium 8.7 mg/dL (7.8-10.44); Carbon Dioxide 24 mmol/L (23-31); Chloride 108 mmol/L (98-107); Glucose 74 mg/dL (83-110); Potassium 4.2 mmol/L (3.5-5.1); Sodium 140 mmol/L (136-145)
[2025-08-16 04:12] LABS: #Basophils 0.04 10x3/uL (0.0-0.2); #Eosinophils 0.11 10x3/uL (0.0-0.7); #Monocytes 0.54 10x3/uL (0.11-0.59); #Neutrophils 3.99 10x3/uL (1.40-6.50); %Basophils 0.7 % (0.0-1.0); %Eosinophils 1.8 % (0.0-10.0); %Lymphocytes 22.7 % (21.0-51.0); %Monocytes 8.9 % (0.0-10.0); %Neutrophils 65.7 % (42.0-75.0); Hematocrit 28.3 % (42.0-52.0); Hemoglobin 8.5 g/dL (14.0-18.0); Mean Corpuscular Hemoglobin 28.7 pg (27.0-31.0); Mean Corpuscular Volume 95.6 fL (78.0-98.0); Platelet Count 199 10x3/uL (130-400); Red Blood Cell (RBC) Count 2.96 mill/uL (4.70-6.10); White Blood Cell (WBC) Count 6.07 10x3/uL (4.8-10.8)
[2025-08-16 04:28] LABS: Anion Gap 15 mmol/L (10-20); BUN (Urea Nitrogen) 15 mg/dL (8.4-25.7); Calc. Creatinine Clearance 68 mL/min (70-130); Calcium 8.5 mg/dL (7.8-10.44); Carbon Dioxide 23 mmol/L (23-31); Chloride 108 mmol/L (98-107); Glucose 90 mg/dL (83-110); Potassium 4.2 mmol/L (3.5-5.1); Sodium 142 mmol/L (136-145)
[2025-08-16] MEDS: PNEUMOC 20-VAL CONJ-DIP CRM/PF 0.5 ML SYRINGE IM ONE (11:38)
[2025-08-16] MEDS: levETIRAcetam 500 MG TAB PO SCH (20:23)
[2025-08-17 03:46] LABS: #Basophils 0.04 10x3/uL (0.0-0.2); #Eosinophils 0.08 10x3/uL (0.0-0.7); #Monocytes 0.64 10x3/uL (0.11-0.59); #Neutrophils 4.28 10x3/uL (1.40-6.50); %Basophils 0.6 % (0.0-1.0); %Eosinophils 1.2 % (0.0-10.0); %Lymphocytes 22.7 % (21.0-51.0); %Monocytes 9.8 % (0.0-10.0); %Neutrophils 65.4 % (42.0-75.0); Hematocrit 29.0 % (42.0-52.0); Hemoglobin 9.0 g/dL (14.0-18.0); Mean Corpuscular Hemoglobin 29.7 pg (27.0-31.0); Mean Corpuscular Volume 95.7 fL (78.0-98.0); Platelet Count 209 10x3/uL (130-400); Red Blood Cell (RBC) Count 3.03 mill/uL (4.70-6.10); White Blood Cell (WBC) Count 6.55 10x3/uL (4.8-10.8)
[2025-08-17 04:17] LABS: Anion Gap 11 mmol/L (10-20); BUN (Urea Nitrogen) 14 mg/dL (8.4-25.7); Calc. Creatinine Clearance 64 mL/min (70-130); Calcium 8.5 mg/dL (7.8-10.44); Carbon Dioxide 26 mmol/L (23-31); Chloride 107 mmol/L (98-107); Glucose 85 mg/dL (83-110); Potassium 3.7 mmol/L (3.5-5.1); Sodium 140 mmol/L (136-145)
[2025-08-17] MEDS: Amiodarone 200 MG TAB PO SCH (08:55)
[2025-08-17] MEDS: Albumin 25% 25 GM (100 mL) BOT IVPB SCH (11:54)
[2025-08-18 05:30] LABS: #Basophils 0.03 10x3/uL (0.0-0.2); #Eosinophils 0.09 10x3/uL (0.0-0.7); #Monocytes 0.43 10x3/uL (0.11-0.59); #Neutrophils 3.45 10x3/uL (1.40-6.50); %Basophils 0.6 % (0.0-1.0); %Eosinophils 1.7 % (0.0-10.0); %Lymphocytes 24.9 % (21.0-51.0); %Monocytes 8.1 % (0.0-10.0); %Neutrophils 64.5 % (42.0-75.0); Hematocrit 27.9 % (42.0-52.0); Hemoglobin 8.7 g/dL (14.0-18.0); Mean Corpuscular Hemoglobin 29.6 pg (27.0-31.0); Mean Corpuscular Volume 94.9 fL (78.0-98.0); Platelet Count 180 10x3/uL (130-400); Red Blood Cell (RBC) Count 2.94 mill/uL (4.70-6.10); White Blood Cell (WBC) Count 5.34 10x3/uL (4.8-10.8)
[2025-08-18 05:47] LABS: Anion Gap 10 mmol/L (10-20); BUN (Urea Nitrogen) 11 mg/dL (8.4-25.7); Calc. Creatinine Clearance 78 mL/min (70-130); Calcium 8.7 mg/dL (7.8-10.44); Carbon Dioxide 26 mmol/L (23-31); Chloride 107 mmol/L (98-107); Glucose 84 mg/dL (83-110); Potassium 3.9 mmol/L (3.5-5.1); Sodium 139 mmol/L (136-145)
[2025-08-18] MEDS: Apixaban 5 MG TAB PO SCH (12:45)
[2025-08-18 14:30] VITALS: BP 153/75; TEMP 98.5
[2025-08-18] MEDS ORDERED: Apixaban 5 MG TAB PO SCH (21:00)
== END 2025-08-18 16:15 | DRG 101 ==
LOC: ERS 17:41 → PCU 20:47 → 2SE 08-17 01:16
PROVIDERS: ADMIT Internal Medicine; ATTEND Internal Medicine
PROC: XX20X89 Monitoring of Brain Electrical Activity, Computer-aided Detection and Notification, New Technology Group 9 (ICD-10-PCS; principal; 2025-08-13)
DX: G40.909 Epilepsy, unspecified, not intractable, without status epilepticus (principal); I13.0 Hypertensive heart and chronic kidney disease with heart failure and stage 1 through stage 4 chronic kidney disease, or unspecified chronic kidney disease; I38 Endocarditis, valve unspecified; I50.32 Chronic diastolic (congestive) heart failure; N18.9 Chronic kidney disease, unspecified; I48.91 Unspecified atrial fibrillation; N18.31 Chronic kidney disease, stage 3a; Z86.711 Personal history of pulmonary embolism; Z79.01 Long term (current) use of anticoagulants; Z79.899 Other long term (current) drug therapy
CPT/HCPCS: 36415; 70450; 71045; 80048; 80053; 80307; 81001; 83605; 83735; 84146; 84443; 84484; 85025; 87040; 87086; 87636; 93005; 96365; 96375; J0696; J1953; J2060; J2405; J2765; J7030; P9047